=== PATIENT | female | born 1955 | race Caucasian/White ===

== ENCOUNTER → 2016-10-29 | Outpatient (CLI) | payer OTHER | LOC: CT 10:19 | DX: R31.29 Other microscopic hematuria (principal); K76.0 Fatty (change of) liver, not elsewhere classified; R93.421 Abnormal radiologic findings on diagnostic imaging of right kidney | CPT/HCPCS: J7050; Q9962 ==

== ENCOUNTER → 2020-11-27 | Outpatient (CLI) | payer OTHER ==
[2020-11-28 08:15] LABS: THYROXINE (T4) 7.6 ug/dL (4.5-12.0)
== END ==
LOC: LAB 15:19
PROVIDERS: Nurse Practitioner
DX: E03.9 Hypothyroidism, unspecified (principal)
CPT/HCPCS: 36415; 84436; 84443; 84480

== ENCOUNTER → 2021-01-01 | Outpatient (CLI) | payer MEDICARE, OTHER ==
[2021-01-03 08:13] LABS: THYROXINE (T4) 9.9 ug/dL (4.5-12.0)
== END ==
LOC: LAB 16:19
PROVIDERS: Nurse Practitioner
DX: E03.9 Hypothyroidism, unspecified (principal); R53.83 Other fatigue
CPT/HCPCS: 36415; 84436; 84443; 84480